=== PATIENT | female | born 1990 | race Caucasian/White ===

== ENCOUNTER 2024-10-04 01:46 | Emergency (ER) | payer MEDICARE, SELFPAY ==
--- OUTSIDE RECORDS SUMMARY | 2024-10-04 04:34 | XMS_ITS | Clinical Summary ---
Author Organization [employer] [facility] Address [address] [place] [address] Care Team Providers Care Commercial Airline Pilot Name Role Phone Mary Starr MD Primary Care Provi alicia Allergies Active Allergy Reactions Criticality Noted Date Comments Beef Containing Products *Unknown 06/06/2021 Gluten *Unknown,Headache 06/06/2021 Lactose *Unknown,Headache 06/06/2021 Nut - Unspecified *Unknown 06/06/2021 Medications apixaban (ELIQUIS) 2.5 mg tabletIndicatio ns:Klippel Trenaunay syndrome (HC),Hypercoagu lopathy (HC) Take 1 Tablet (2.5 mg) by mouth 2 times daily. 180 Tablet 3 2 Active aspirin chewable 81 mg chewable tablet Chew 324 mg by mouth once daily if needed. Active miscellaneous medical supply miscIndications :Klippel Trenaunay syndrome (HC) As directed. Patient needs tinted windows beyond legally allowed limit to help prevent heat stroke related to Klippel Trenaunay Syndrome. 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 at [facility] for this in the Klippel Trenaunay Syndrome clinic. 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 Located on the left leg Leg length discrepancy 09/18/2021 Overview (09/18/2021): Associated with Klippel Trenaunay Syndrome Hypercoagulopathy 09/18/2021 Overview (09/18/2021): Associated with Klippel Trenaunay Syndrome, on apixaban. Chronic pain disorder 09/18/2021 Overview (09/18/2021): due to vascular malformations and lymphedema related to Klippel Trenaunay Syndrome. Immunizations Immunization Administration Dates Next Due Covid-19 Vaccine (Unspecified) 08/31/2020 Td (Age >=7 Years) 02/28/2012 Tdap 12/04/2021 Social History Tobacco Use Types Packs/Day Years Used Date Smoking Tobacco: Never Smokeless Tobacco: Never Alcohol Use Standard Drinks/Week Comments Not Currently 0 (1 standard drink = 0.6 oz pur e alcohol) PHQ-2 Answer Date Recorded PHQ-2 TOTAL SCORE 0 12/04/2021 Social Connections Answer Date Recorded Frequency of Communication with Friends and Fami ly Not on file 09/18/2021 Comments No Sex and Gender Information Value Date Recorded Sex Assigned at Not on file Legal Sex Female 2:47 PM CDT Gender Identity Not on file Sexual Orientation Not on file Obstetrics History Last Filed Vital Signs Vital Sign Reading Time Taken Comments Blood Pressure 108/64 12/19/2021 1:52 PM CDT Pulse 92 12/19/2021 1:52 PM CDT Temperature 36.7 C (98.1 F) 12/19/2021 1:52 PM CDT Respiratory Rate 18 12/19/2021 1:52 PM CDT Oxygen Saturation 100% 12/19/2021 1:52 PM CDT Inhaled Oxygen Concentration - - Weight 53.1 kg (117 lb) 12/19/2021 1:52 PM CDT Height 161.8 cm (5' 3.7) 12/19/2021 1:52 PM CDT Body Mass Index 20.27 12/19/2021 1:52 PM CDT Plan of Treatment Health Maintenance Due Date Last Done Comments HIV for age 15-65 2005 Hepatitis C screening for ag e 18-79 2008 Hepatitis B series for 19+ ( 1 of 3 - 19+ 3-dose series) 2009 Pap test for age 21-65 2011 Depression screening for age 12+ 12/04/2022 12/04/2021, 12/04/2021 BMI (ht and wt on same day) for age 18+ 12/19/2022 12/19/2021, 12/04/2021, 09/18/2021 COVID-19 vaccine series (2023- season) 2023 08/31/2020 Influenza Vaccine (Season Ended) 2024 Tetanus booster 12/05/2031 12/04/2021, 02/28/2012 Tdap Completed 12/04/2021 Pneumococcal series for age 6-49 Aged Out No longer eligible b ased on patient's age to complete this topic Insurance MEDICARE [place] ONLY Care Teams Commercial Airline Pilot Relationship Specialty Start Date End Date Mary Starr MD [address] [place] [address] PCP - General Family Practice 09/18/21
--- OUTSIDE RECORDS SUMMARY | 2024-10-04 04:34 | XMS_ITS | Patient Health Record ---
Author Organization [facility] Address [address] [facility] [address] [place] [address] Care Team Providers Care Cdl Bulk Driver Name Role Phone Stacey Maradiaga Unavailable Unavailable REASON FOR REFERRAL No Information MEDICATIONS Medication SIG (Take, Route, Frequency, Duration) Notes Start Date End Date Status Xanax Active PLAN OF TREATMENT Pending Test Test Name Order Date Ultrasound : Transvaginal 08/05/2015 Insurance Providers Payer Name Payer Address Payer Phone Subscriber Number Group Number Insured Name Patient Relationship to Insured Coverage Start Date Coverage End Date Medicare Part B [address] [address] [place] [address] [phone] [id number] Edith Mathis Self - patient is the insured 6 MEDICAL (GENERAL) HISTORY Surgical History Surgery Date(Month/Year) Vein Strip Schelera therapy Splint removed from left knee
--- OUTSIDE RECORDS SUMMARY | 2024-10-04 04:35 | XMS_ITS | Patient Health Record ---
Author Organization [facility] Address [address] [place] [address] Care Team Providers Care Law Instructor Name Role Phone None, No PCP Primary Care Provider Sherrie Mohamud [phone] Allergies Allergen (clinical drug ingredient) Drug/Non Drug Allergy documented on EMR Reaction Allergy Type Onset Date Status Gluten Gluten Unknown Allergy Active Reason For Referral No Information Medications Medication SIG (Take, Route, Fr equency, Duration) Notes Start Date End Date Status Multivitamin & Mineral Active Eliquis 5 MG 1 tablet Orally Twice a day Active Social History Tobacco Use: Social History Observation Description Date Details (start date - stop date) Never Smoker NA - NA Tobacco Use/Smoking Question Answer Notes Are you a nonsmoker Alcohol Screen (Audit-C) Question Answer Notes Did you have a drink containing alcohol in the p ast year? No Points 0 Interpretation Negative Problems Problem Type SNOMED Code ICD Code Onset Dates Problem Status W/U Status Risk Notes Problem Human papilloma virus screening (391753337) Encounter for screening for human papillomavirus (HPV) (Z11.51) Active confirmed Problem Routine gynecologic examination (391890733) Encounter for routine gynecological examination with Papanicolaou smear of cervix (Z01.419) Active confirmed Plan Of Treatment No Information Insurance Providers Payer Name Payer Address Payer Phone Subscriber Number Group Number Insured Name Patient Relationship to Insured Coverage Start Date Coverage End Date Medicare (Ins. Bill) [address] [place], [place] [id number] Edith Mathis Self - patient is the insured Medical (General) History Medical History History ICD Code klippel-trenaunay syndrome vascular malf ormation; Left Lower Limb Surgical History Surgery Date(Month/Year) Vascular Surgeries
--- OUTSIDE RECORDS SUMMARY | 2024-10-04 04:35 | XMS_ITS | Clinical Summary ---
Author Organization [facility] Address [address] [place] [address] Care Team Providers Care Upkeep Worker Name Role Phone Unavailable Primary Care Provider Unavailabl e Source Comments Patient records contain information from all sites at [facility]. For routine questions regarding patient records, call [phone] during business hours, M-F 8:00 AM - 5:00 PM Central Time. Record requests for emergency care only can be directed to [phone] at any time.[facility] Allergies Active Allergy Reactions Criticality Noted Date Comments Beef Containing Products GI intolerance 022 Lactose GI intolerance,Headache 06/06/2021 Gluten GI intolerance,Headache 06/06/2021 Nut - Unspecified GI intolerance 06/06/2021 Medications * This document contains information received from the source organization and may not represent a complete record from that organization. multivit with iron,minerals (MULTIVITAMIN WITH IRON-MINERAL ORAL) Multivitamin & Mineral Active apixaban (ELIQUIS) 5 mg tablet Take 1 tablet (5 mg total) by mouth every 12 (twelve) hours. 180 tablet 3 4 Active Active Problems Problem Noted Date Diagnosed Date Malformation Vascular 06/27/2022 Discrepancy Leg Length Acquired 09/18/2021 Overview (07/03/2022): Associated with Klippel Trenaunay Syndrome Klippel Trenaunay Syndrome 02/28/2016 Overview (07/03/2022): Sees Dr. Nelson at [facility] for associated leg pain. Sees Dk PURCELL in vascular surgery. Wears 40-50 mm compression stocking daily. Has been referred to Dr. Gil in dermatology with initial appointment scheduled for 04/11/2016. Sees Christianne Schmitz M.D. at [place] for this in the [facility] [place] Trenaunay Syndrome clinic. Family History Medical History Relation Name Comments Diabetes mellitus type II Father Father Heart disease Father Father Hypertension Father Father Relation Name Status Comments Father Father Social History Tobacco Use Types Packs/Day Years Used Date Smoking Tobacco: Never Smokeless Tobacco: Never Tobacco Cessation:Counseling Given: Not Answered Alcohol Use Standard Drinks/Week Comments Never 0 (1 standard drink = 0.6 oz pur e alcohol) Humiliation, Afraid, Rape, and Kick questionnair e Answer Date Recorded Within the last year, have y ou been afraid of your partner or ex-partner? No 06/27/2022 Within the last year, have y ou been humiliated or emotionally abused in other ways by your partner or ex-partner? No Within the last year, have y ou been kicked, hit, slapped, or otherwise physically hurt by your partner or ex-partner? No 06/27/2022 Within the last year, have y ou been raped or forced to have any kind of sexual activity by your partner or ex-partner? No 06/27/2022 Social Connection and Isolat ion Panel [NHANES] Answer Date Recorded In a typical week, how many times do you talk on the phone with family, friends, or neighbors? More than three times a week 06/27/2022 How often do you get togethe r with friends or relatives? Once a week 06/27/2022 How often do you attend chur ch or judaism services? Never 06/27/2022 Do you belong to any clubs o r organizations such as yazdanism groups, unions, fraternal or athletic groups, or school groups? No 06/27/2022 How often do you attend meet ings of the clubs or organizations you belong to? Never 06/27/2022 Are you , , di vorced, , never , or living with a partner? Never 06/27/2022 AUDIT-C Answer Date Recorded Q1: How often do you have a drink containing alc ohol? Never 06/27/2022 Average Number of Drinks Not on file 023 Frequency of Binge Drinking Not on file 04/2022 Overall Financial Resource Strain (CARDIA) Answe r Date Recorded How hard is it for you to pa y for the very basics like food, housing, medical care, and heating? Patient declined 06/27/2022 [facility] - Occupational Stress Questionnaire Answer Date Recorded Do you feel stress - tense, restless, nervous, or anxious, or unable to sleep at night because your mind is troubled all the time - these days? Not at all 06/27/2022 Exercise Vital Sign Answer Date Recorde d On average, how many days pe r week do you engage in moderate to strenuous exercise (like a brisk walk)? 0 days 06/27/2022 On average, how many minutes do you engage in exercise at this level? 0 min 06/27/2022 Hunger Vital Sign Answer Date Recorded Within the past 12 months, y ou worried that your food would run out before you got the money to buy more. Patient declined Within the past 12 months, t he food you bought just didn't last and you didn't have money to get more. Patient declined 04/2022 PRAPARE - Transportation Answer Date Re corded In the past 12 months, has l ack of transportation kept you from medical appointments or from getting medications? No 04/2022 In the past 12 months, has l ack of transportation kept you from meetings, work, or from getting things needed for daily living? No 06/27/2022 Housing Stability Vital Sign Answer Judd e Recorded In the last 12 months, was t here a time when you were not able to pay the mortgage or rent on time? Patient refused 06/28/19 23 In the last 12 months, how many places have you lived? 2 06/27/2022 In the last 12 months, was t here a time when you did not have a steady place to sleep or slept in a fpc (including now)? No 06/27/2022 Nutrition Answer Date Recorded On average, how many serving s of fruits and vegetables do you eat per day (serving size is equal to 1 cup or approximately the size of a tennis ball)? 0-1 06/27/2022 Dental Answer Date Recorded Dental: Regular Dentist Yes 06/28/19 Employment Answer Date Recorded Employment status Permanently disabled Education Answer Date Recorded What is the highest level of school you have completed or the highest degree you have received? Bachelor's degree (e.g., BA, AB, BS) 06/27/2022 Comments Unknown Sex and Gender Information Value Date Recorded Sex Assigned at Female 06/27/2022 10:35 AM SIGHTSEEING GUIDE Legal Sex Female 6:46 PM SIGHTSEEING GUIDE Gender Identity Female 06/27/2022 10:37 AM SIGHTSEEING GUIDE Sexual Orientation Straight 06/27/2022 10 :37 AM SIGHTSEEING GUIDE Last Filed Vital Signs Vital Sign Reading Time Taken Comments Blood Pressure 105/68 06/03/2023 3:41 PM SIGHTSEEING GUIDE Pulse 91 06/03/2023 3:41 PM SIGHTSEEING GUIDE Temperature - - Respiratory Rate - - Oxygen Saturation - - Inhaled Oxygen Concentration - - Weight 52.5 kg (115 lb 11.9 oz) 06/03/2023 3:39 PM SIGHTSEEING GUIDE Height 160.8 cm (5' 3.31) 06/03/2023 3:39 PM CS T Body Mass Index 20.3 06/03/2023 3:39 PM SIGHTSEEING GUIDE Plan of Treatment Health Maintenance Due Date Last Done Comments HIV Screening 1990 Hepatitis C Screening 1990 Cervical/Vaginal Cancer Screening 02/27/2019 02/28/2016 COVID-19 Vaccine ( season) 2023 02/16/2023, 02/13/2022 Influenza Vaccine (#1) 2024 Depression Screening (Annual PHQ-2) 04/29/2024 DTaP,Tdap,and Td Vaccines (8 - Td or Tdap) 12/05/2031 12/04/2021, 09/12/2001, 10/27/1996, Additional history exists Hepatitis B Vaccines Completed 07/02/1994, 11/14/1993, 10/12/1993 IPV Vaccines Completed 11/18/1995, 11/1991, 1990, Additional history exists HPV Vaccines Aged Out No longer eligi ble based on patient's age to complete this topic Pneumococcal vaccine (0-49 years) Aged Out No longer eligible based on patient's age to complete this topic Insurance MEDICARE
--- OUTSIDE RECORDS SUMMARY | 2024-10-04 04:35 | XMS_ITS | Data Portability ---
Author Organization [facility] Address [address] [place] [id number] Assessment Encounter Date Assessment Date Assessment LastModified by Organization Details LastModified Time 09/04/2023 09/04/2023 Time spent reviewing the patient s medical record, diagnostic studies, performing a focused history and physical exam, educating the patient regarding the natural history of disease as it pertains to the patient, discussing treatment options and alternatives, medical decision making, and chartin-59 minutes. Not available 09/04/2023 13:41:25 Plan of Treatment Reminders Order Date Submit Date Provider Last Modified By Organization Details Last Modified Time Details Appointments None record ed. Lab None record ed. Referral None record ed. Procedures None record ed. Surgeries None record ed. Imaging None record ed. Medication Orders None record ed. Patient TargetsNo targets recorded. Patient Instructions Encounter Date Encounter Id Patient Instructions Last Modified By Organization Details Last Modified Time 09/04/2023 [id number] PROCEDURE RECOMMENDATIONS 1. Ultrasound guided foam sclerotherapy of the residual incompetent tributaries and varicosities greater than 4.0mm of the left leg (21021, [address]43) - 3 sessions Not available 09/04/2023 13:42:33 Reason for Referral None Reported. Problems Name Problem SNOMED Code Status Onset Date Resolution Date Notes Provider Name and Address Organization Details Recorded Time Klippel Trenaunay syndrome 613773412 Active 024 Karri Nichols PA-C [address], [place], [address], [place] [facility] 13:31:55 Problem Notes None recorded. Procedures Surgical History Date Name Laterality Status Provider Name and Address Organization Details Recorded Time procedure on vein completed Karri Nichols PA-C [address] [place], [address], [place] [facility] 09/04/2023 13:32:32 Imaging Results None recorded. Procedure Notes None recorded. Medical Equipment None Reported. Allergies No known drug allergies Medications Name Sig Start Date Stop Date Status Note LastModified by Organization Details LastModified Time Eliquis 5 mg tablet active Not Available Not Available No t Available Vitals Date Recorded Body height Body mass index (BMI) Body weight Provider Name and Address Organization Details Last Updated DateTime 09/04/2023 157.48 cm 21 kg/m2 73888.12 g Karri Nichols PA-C [address], [place], [address], [place] [facility] 09/04/2023 13:31:42 Social History None recorded. Functional Status Question Answer Note LastModified by Organization D etails LastModified Time What is your level of alcohol consumption? None Information not available 09/04/2023 Are you currently employed? No Information not available 09/04/2023 Mental Status None recorded. Family History Nothing Reported. Medical History No medical history recorded. Gynecological HistoryNo gynecological history recorded. Obstetrics History GPAL:G 0 P 0 0 0 0 Past Encounters Encounter ID Performer Location Encounter Start Date Encounter Closed Date Diagnosis/Indication Diagnosis SNOMED-CT Code Diagnosis ICD10 Code Diagnosis Note [id number] Karri Nichols PA-C [facility] [address] [address] [place] [address] 09/04/2023 11:55:31 09/09/2023 11:32:16 Pain co-occurrent and due to varicose veins of left leg [id number] I83.812 DUPLEX ULTRASOUND FINDINGS: Spectral doppler analysis shows abnormal reflux (>500msec) in the multiple left tributary veins. The left GSV and SSV are absent c/w prior treatment. The deep veins are patent with normal compressib ility and augmentati on. Left deep venous insufficie ncy is absent. There is adequate venous capacity of the deep system. [id number] IN[facility] [address] [place] [address] 09/04/2023 11:55:31 09/09/2023 11:32:16 Pain co-occurrent and due to varicose veins of left leg [id number] I83.812 DUPLEX ULTRASOUND FINDINGS: Spectral doppler analysis shows abnormal reflux (>500msec) in the multiple left tributary veins. The left GSV and SSV are absent c/w prior treatment. The deep veins are patent with normal compressib ility and augmentati on. Left deep venous insufficie ncy is absent. There is adequate venous capacity of the deep system. 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 CEAP 3 VCSS 112) Normal deep venous system without DVT3) The patient has progressio n of symptoms despite conservati ve measures including: use of GCS class II or higher for more than 12 weeks, avoiding long periods of sitting/st anding, regular daily exercise including moderate walking, weight control, OTC analgesics and leg elevation. PLAN:1) Proceed with the treatment plan detailed below. Patient does note that with prior sclero treatments she has had a lot of knee pain, so prefers to focus on lower leg/ankle first and inject surroundin g knee as she is comfortabl e. Klippel Tr enaunay syndrome [id number] Q87.2 Lymphedema 104934614 I89 .0 Patient is interested in lymphedema therapy referral for MLD and wrapping. She has had it in the past with good results. Gave patient list of preferred therapists and she will contact us to send referral in when she looks over list. Health Concerns Section Related Observation LastModified by Organization Detai ls LastModified Time None Recorded Concern Status LastModified by Organization Details LastModified Time None Recorded Advance Directives Directive None Recorded Payers Encounter Date Sequence Insurance Name Policy Number Policy Montano Covered Member ID Montano Member ID Guarantor Name 09/04/2023 1 [place] [employer] Edith Mathis [id number] Edith Mathis 09/04/2023 1 [place] [employer] Edith Mathis [id number] Edith Mathis Notes Date Note Type Note Provider Name and Address Organization Details Recorded Time 09/04/2023 text/html The patient is a 33 yo female who presents with Klippel Trenaunay Syndrome and complications of left lower extremity varicose veins. This has been present since and patient has had vein treatments since she was 15 years old. Patient now regularly gets medical sclerotherapy treatments for maintenance of symptoms, although has not had treatment for 8 years. Patient is followed with vascular surgery and uses Eliquis daily as prophylaxis for DVT and for symptom control. Patient uses 40-50mmHg compression daily. Symptoms include: pain, aching, heavy legs, fatigue, itching, recurring swelling, spider veins, surface veins. Patient also has a port wine stain surrounding knee, this area does get hot and painful. There is no history of DVT, ulceration, cellulitis or phleborrhagia. History of SVT in the past, since Eliquis use has not had any episodes. Symptom location: Left leg including foot/ankle, surround knee, and up to thigh Symptom severity: 10/10; severe Symptoms occur with: prolonged sitting and standing, sleeping, during activity/exercise, after activity/exercise, and are worse later in the day. ADLs affected by symptoms:-Sleep: interfere with patient s ability to fall asleep and cause patient to awaken from sleep frequently.-Exercis e/activity: limit ability to exercise, including walking.-Work: Needs to take frequent breaks to walk and/or elevate legs.-Chores: Avoids chores or needs to take breaks to walk and/or elevate legs.-Leisure activities: Avoids activities or needs to take breaks to walk and/or elevate. Conservative measures implemented without relief of symptoms:-avoidance of prolonged periods of sitting or standing,-regular exercise including moderate daily walking,-leg elevation,-weight control,-GCS 40-50 mmHg >3 months, wears daily, has had Rx since she was 15 y/o,-OTC analgesics. Mireille Samriento MD [address], [place], [address], [place] [facility] 09/04/2023 14:52:58 OBGyn Episode No OBEpisode recorded.
[2024-10-04 04:37] VITALS: BP 135/62; PULSE 115; RESP 18; TEMP 36.9; O2SAT 98; BMI 20.7
--- OUTSIDE RECORDS SUMMARY | 2024-10-04 04:37 | XMS_ITS | Data Portability ---
Author Organization [facility] - Jewel Hess MD, Main Office Address [address] [address] Assessment No assessment recorded. Plan of Treatment Reminders Order Date Submit Date Provider Last Modified By Organization Details Last Modified Time Details Appointments None recorded. Lab urinalysis complete, reflex culture 2020 021 [place] [facility] ([facility], [address] [place] [address], [place], [address], 2 05:01:03 urinalysis, dipstick 2020 021 [place] Main Office, [address] [facility] [address], [place], [address], 1 16:30:49 Referral None recorded. Procedures None recorded. Surgeries None recorded. Imaging None recorded. Medication Orders None recorded. Patient TargetsNo targets recorded. Patient InstructionsNo instructions recorded. Reason for Referral None Reported. Results Created Date Observation Date Name Description Value Unit Range Abnormal Flag Note LastModifiedBy Organization Detail LastModifiedTime 01/26/20 21 01/26/2021 NTI URINE TUBE (MARCELINO ) nti urine tube (marcelino) Commen t: A urine cultu re trans port was recei randy with no test indic ated. If testi ng is requi red on this speci men, pleas e conta ct the [facility] Clien t Inqui ry/Te chnic al Servi marce Depar tment to obtai n a Reque st for Writt en Autho rizat ion Form. Not Available [facility] ([facility]) [address] [facility], [place], [address], 01/26/2021 13:37:30 01/26/20 21 01/31/2021 URINE CULTU RE,CO MPREH ENSIV E urine culture,comp rehensive Final report Not Available [facility] ([facility]) [address] [facility], [place], [address], 01/31/2021 16:37:51 01/26/20 21 01/31/2021 URINE CULTU RE,CO MPREH ENSIV E result 1 Lactob acillu s specie s 25,00 0-50, 000 colon y formi ng units per mL Susce ptibi lity not ashley lly perfo rmed on this organ ism. Not Available [facility] ([facility]) [address] [facility], [place], [address], 01/31/2021 16:37:51 01/26/20 21 01/31/2021 RHIANNA EN AUTHO RIZAT ION written authorizatio n Lloyd Gagnon en Autho rizat ion Recei randy. Autho rizat ion recei randy from Jewelregina mcdaniel 01-31 Logge d by Georgina hardy Not Available [facility] ([facility]) [address] [facility], [place], [address], 01/31/2021 16:37:52 01/26/20 21 01/25/2021 urina lysis , dipst ick Nitrite negati ve Not Available Main Office [address], [place], [address], 01/25/2021 12:47:34 01/26/20 21 01/25/2021 urina lysis , dipst ick Protein Negati ve Not Available Main Office [address], [place], [address], 01/25/2021 12:47:34 01/26/20 21 01/25/2021 urina lysis , dipst ick Urobilinogen .2 Not Available Main Office [address], [place], [address], 01/25/2021 12:47:34 01/26/20 21 01/25/2021 urina lysis , dipst ick pH 6.0 Not Available Main Offic e [address], [place], [address], 01/25/2021 12:47:34 01/26/20 21 01/25/2021 urina lysis , dipst ick Blood Negati ve Not Available Main Office [address], [place], [address], 01/25/2021 12:47:34 01/26/20 21 01/25/2021 urina lysis , dipst ick Specific [place] 1.015 Not Available Main O ffice [address], [place], [address], 01/25/2021 12:47:34 01/26/20 21 01/25/2021 urina lysis , dipst ick Ketone Negati ve Not Available Main Office [address], [place], [address], 01/25/2021 12:47:34 01/26/20 21 01/25/2021 urina lysis , dipst ick Bilirubin Negati ve Not Available Main Office [address], [place], [address], 01/25/2021 12:47:34 01/26/20 21 01/25/2021 urina lysis , dipst ick Glucose Negati ve Not Available Main Office [address], [place], [address], 01/25/2021 12:47:34 01/26/20 21 01/25/2021 urina lysis , dipst ick Leukocytes Small Not Available Main Of fice [address] [facility] [address], [place], [address], 01/25/2021 12:47:34 01/26/2001/25/2021 urina lysis , dipst ick Appearance Slight ly Cloudy Not Available Main Office [address] [facility] [address], [place], [address], 01/25/2021 12:47:34 01/26/2001/25/2021 urina lysis , dipst ick Color Pale Yellow Not Available Main Office [address] [facility], [place], [address], 01/25/2021 12:47:34 Result Notes None recorded. 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 Medical Equipment None Reported. Allergies No known drug allergies Medications Name Sig Start Date Stop Date Status Note LastModified by Organization Details LastModified Time Eliquis 5 mg tablet TAKE 1 TABLET BY MOUTH EVERY DAY active Not Available Not Available No t Available Eliquis 2.5 mg tablet TAKE 1 TABLET (2.5 MG TOTAL) BY MOUTH EVERY 12 (TWELVE) HOURS active Not Available Not Available No t Available Vitals Date Recorded Body height Body temperature Heart rate Oxygen saturation Oxygen saturation in Arterial blood by Pulse oximetry Systolic blood pressure Diastolic blood pressure Provider Name and Address Organization Details Last Updated DateTime 157.48 cm 98.1 [degF] 90 /min 99 % 99 % 128 mm[Hg] 66 mm[Hg] Jewel Hess MD [address], [place], [address], [place] Danis Hess MD 12:44:05 Social History Question Answer Notes LastModified by Organizat ion Details LastModified Time Tobacco Smoking Status Never Smoker Jewel Hess MD [address] [facility], [place], [address], [facility] Jewel Hess MD 01/25/2021 12:31:55 Are You Blind Or Do You Have Difficulty Seeing? No [email or web address] Information n ot available 02/06/2021 In The 14 Days Before Symptom Onset, Have You Had Close Contact With A Laboratory-confirm ed COVID-19 While That Case Was Ill? No Information n ot available 02/06/2021 In The 14 Days Before Symptom Onset, Have You Had Close Contact With A Person Who Is Under Investigation For COVID-19 While That Person Was Ill? No [email or web address] Information not available 02/06/2021 Have You Been To An Area Known To Be High Risk For COVID-19? No [email or web address] Information not available 02/06/2021 Are You Deaf Or Do You Have Serious Difficulty Hearing? No [email or web address] Information not available 02/06/2021 Have You Processed Blood Or Body Fluids From An Ebola Virus Disease Patient Without Appropriate PPE? No [email or web address] Information not available 02/06/2021 Do You Reside In Or Have You Traveled To An Area Where Ebola Virus Transmission Is Active? No Information not available 02/06/2021 Have You Recently Or Are You Planning To Travel To An Area With Zika Virus? No [email or web address] Information not available 02/06/2021 Do You Have Difficulty Walking Or Climbing Stairs? Yes [email or web address] Information not available 02/06/2021 Sex: Unknown Functional Status Question Answer Note LastModified by Organizat ion Details LastModified Time Do you use any illicit or recreational drugs? No Information not available 01/25/2021 What is your level of alcohol consumption? None [email or web address] Information not available 01/25/2021 Are you currently employed? No [email or web address] Information not available 01/25/2021 Do you have transportation difficulties? No [email or web address] Information not available 02/06/2021 Are you able to walk? YESWOREST [email or web address] Information not available 02/06/2021 Do you have difficulty doing errands alone? No [email or web address] Information not available 02/06/2021 Are you able to care for yourself? Yes [email or web address] Information not available 02/06/2021 Do you have difficulty dressing or bathing? No [email or web address] Information not available 02/06/2021 Mental Status Question Answer Note LastModified by Organization D etails LastModified Time Do you have difficulty concentrating, remembering or making decisions? [place] [email or web address] Information no t available 02/06/2021 Family History Relationship Description Onset Age of this Age Resolved Age Notes LastModified by Organization Details LastModified Time Father Diabetes mellitus [email or web address] Not available 01/25 12:30:45 Father Heart disease [email or web address] Not available 01/25 12:30:55 Medical History No medical history recorded. Gynecological HistoryNo gynecological history recorded. Obstetrics History GPAL:G 0 P 0 0 0 0 Immunizations Vaccine Type Date Status Note Provider Nam e and Address Organization Details Recorded Time SARS-COV-2 (COVID-19) vaccine, UNSPECIFIED 08/31/2020 completed Jewel Hess MD [address] [facility],[address], [place], [address], [facility] [place] Jewel Hess MD 01/25/2021 12:32:23 Past Encounters Encounter ID Performer Location Encounter Start Date Encounter Closed Date Diagnosis/Indication Diagnosis SNOMED-CT Code Diagnosis ICD10 Code Diagnosis Note [id number] Jewel Hess MD Main Office [address] [facility] [address] [place] [address] 01/25/2021 12:09:18 01/25/2021 12:56:22 Acute urinary tract infection 499358874 N39.0 will check urine or infection. Doesn't want to get empiricall y treated with ABx at this times. Klippel Tr enaunay syndrome 786834905 Q87.2 She was diagnosed with this few years ago.Naomi carranza on Eliquis QD.Follows up with a specialist .Spent about 40 minutes discussing her diagnosis/ management . Adult heal th examination 430441274 Z00.01 She recently had blood work done at a different lab.Advise d her to have them faxed over to our office.It was allegedly WNL. Health Concerns Section Related Observation LastModified by Organization Detai ls LastModified Time None Recorded Concern Status LastModified by Organization Details LastModified Time None Recorded Advance Directives Directive None Recorded Payers Encounter Date Sequence Insurance Name Policy Number Policy [place] Covered Member ID [place] Member ID Guarantor Name 01/25/2021 1 [place] Edith Mathis [id number] Edith Mathis Notes Date Note Type Note Provider Name and Address Organization Details Recorded Time 01/25/2021 text/html Edith is a 30 y o CF here to establish care with us.She was diagnosed with Klippel Trenaunay syndrome(KTS) few years ago. Is on eliquis 5 mg qdLast physical 2 years ago. Labs [facility] done [facility].Does have chronic L leg pain and swelling.Has increase frequency of urination. Intermittent burning. No pelvic pain though.Father had DM/heart disease.Vitals are WNL in the office.He L leg swells up quickly if she sits or stands. Swelling decreases on leg elevation. She has chronic lymphedema.She has Port-wine stains on her LLL. Jewel Hess MD [address] [facility], [address], [facility] [place] Jewel Hess MD 02/06/2021 15:14:24 OBGyn Episode No OBEpisode recorded.
[2024-10-04 05:37] LABS: Color Urine Yellow (Yellow)
[2024-10-04 05:38] LABS: Appearance Urine Slightly Cloudy (Clear); Bacteria Urine Few; Bilirubin Urine Negative (Negative); Blood Urine 3+ (Negative); Glucose Urine Negative (Negative); Ketones Urine Negative (Negative); Leukocyte Esterase Urine Trace (Negative); Nitrite Urine Negative (Negative); Protein Urine Negative (Negative); RBC Urine 50-100 (0-2); Squamous Epithelial Cell Urine Few (None-Few); Urobilinogen Urine 0.2 (0.2-1.0); WBC Urine 0-2 (0-5)
[2024-10-04 05:39] LABS: Ur HCG Qualitative* Negative (Negative)
--- NOTE | 2024-10-04 06:22 | ED_ITS ---
HPI - General Adult General Chief complaint: Urogenital Problems, Female Stated complaint: Vaginal bleeding History of Present Illness HPI narrative: EMR down time note on Edith Mathis 34-year-old female presents to the emergency department for evaluation of which she describes as a ?object protruding from her vagina?.? She noticed this about an hour ago.? She takes Eliquis because of an AV malformation.? She has been having ?midcycle bleeding? for quite sometime and has an appointment scheduled with the survey crew chief in 2 weeks.? She she does not take any type of contraception but reports that she has not been sexually active for more than 2 years.? Her menstrual spotting started yesterday.? Is not prone to clots or decidual type material.? Has no history of uterine or cervical cancer.? No STD type symptoms.? No fever or abdominal pain.? Did not try any home treatments prior to coming to the ED.? Reports her past medical history is notable for an AV malformation.? Home medication is Eliquis.? Allergies to epinephrine.? ROS is notable for a gynecological symptoms, otherwise denies times 12 systems. On exam weight 113, temp 98.5?, pulse 115, O2 sats 98% on room air respiratory rate 18 blood pressure 135/62.? Generally she is awake and alert, anxious but redirectable.? Good historian.? Head appears atraumatic eyes with normal conjugate gaze and normal appearing pupils.? Oropharynx with acyanotic lips moist membranes neck appears visually normal.? Breathing is unlabored, speaking in full sentences.? Abdomen is soft and nongravid.? Nontender.? General exam shows normal appearing external genitalia.? Normal urethra, labia, mild red vaginal bleeding but no signs of foreign body or mass externally.? Speculum exam is gently inserted.? Here I can see a dime-sized typical clot mixed with red blood, about a 2 cm string attached to a pea-sized similar clot as well.? These are gently removed from the vaginal vault with a Q-tip and then a ring forcep.? I do examine them, gently probed through the material.? Do not see any evidence of placental tissue, tissue or obvious dysmorphia.? Speculum exam is then used to re-examine the cervix which appears nulliparous with no further abnormal material, mild bright red vaginal bleeding, no severe bleeding.? Lower extremities are covered with compression stockings.? The remaining skin exposed shows no obvious signs of rash or trauma.? Mood behavior and affect are anxious but reasonably appropriate. ED course: HCG and urinalysis collected.? Expecting these to be negative.? Counseled patient that this appears to be a simple clot with decidual lining.? Offered to send for pathology but this would not negate the need for a pelvic ultrasound and likely an endometrial biopsy to further workup her midcycle bleeding.? Counseled patient that I do not have ultrasound available overnight for non emergent cases.? She does have a gynecology visit scheduled in 2 weeks and I have encouraged her to keep that appointment.? Would recommend ultrasound and then determining further workup based on these results.? Counseled patient that unfortunately she may have more of these but we reviewed signs of reasonably safe clots and what to do about larger clots, corner to golf ball- sized, persistent heavy bleeding all of which would warrant ED presentation.? She will continue on her Eliquis.? Written instructions provided, all questions answered.? Patient will be discharged home to keep her gynecology follow-up as planned.? Update: Urinalysis does show blood which of course make sense with her on her menstrual cycle but the test is negative. Assessment dysfunctional uterine bleeding, decidual clot, needs further workup.? Plan as stated above. Related Data Allergies Allergy/AdvReac Type Severity Reaction Status Date / Time epinephrine AdvReac Mild Palpitation Verified 10/04/24 04:52 s Exam Const: Vital Signs, click to edit/add: Vital Signs - 24 hr 10/04/24 04:37 Temperature 98.5 F Pulse Rate [Right] 115 H Respiratory Rate 18 Blood Pressure [Ri ght Upper Arm] 135/62 Pulse Oximetry 98 Oxygen Delivery Me thod Room Air Course Vital Signs Vital signs: Initial Vital Signs Temperature 98.5 F 10/04/24 04:37 Temperature Source Temporal Artery Scan 10/04/24 04:37 Pulse Rate 115 H 10/04/24 04:37 Pulse Rhythm Regular 10/04/24 04:37 Pulse Strength 3+ Normal 10/04/24 04:37 Respiratory Rate 18 10/04/24 04:37 Blood Pressure 135/62 10/04/24 04:37 Blood Pressure Mean 86 10/04/24 04:37 Blood Pressure Position Sitting 10/04/24 04:37 Pulse Oximetry 98 10/04/24 04:37 Oxygen Delivery Method Room Air 10/04/24 04:37 Vital Signs Temperature 98.5 F 10/04/24 04:37 Pulse Rate 115 H 10/04/24 04:37 Respiratory Rate 18 10/04/24 04:37 Blood Pressure 135/62 10/04/24 04:37 Pulse Oximetry 98 10/04/24 04:37 Oxygen Delivery Method Room Air 10/04/24 04:37 Temperature 98.5 F 10/04/24 04:37 Pulse Rate 115 H 10/04/24 04:37 Respiratory Rate 18 10/04/24 04:37 Blood Pressure 135/62 10/04/24 04:37 Pulse Oximetry 98 10/04/24 04:37 Oxygen Delivery Method Room Air 10/04/24 04:37 Medical Decision Making Lab Data Lab results reviewed: Yes I reviewed the patient's lab results Lab results narrative: Blood expected, on menses. Negative test Labs: Lab Results 10/04/24 Range/Units 02:12 Urine Color Yellow (Yellow) Urine Appearance Slightly Cloudy A (Clear) Urine pH 7.0 (5.0-8.5) Ur Specific [place] 1.010 (1.000-1.030) Urine Protein Negative (Negative) Urine Glucose (UA) Negative (Negative) Urine Ketones Negative (Negative) Urine Blood 3+ A (Negative) Urine Nitrite Negative (Negative) Urine Bilirubin Negative (Negative) Urine Urobilinogen 0.2 (0.2-1.0) Ur Leukocyte Esterase Trace A (Negative) Urine RBC 50-100 A (0-2) Urine WBC 0-2 (0-5) Ur Squamous Epith Cells Few (None-Few) Urine Bacteria Few A (None) Urine HCG, Qual Negative (Negative) Discharge Plan Discharge Clinical Impression: Bleeding, uterine, dysfunctional Patient Disposition: Home w/ Parent or Adult Condition: Stable Instructions: Abnormal (Dysfunctional) Uterine Bleeding (ED) Additional Instructions: Patient instructions on Edith Mathis I apologize for the less professional looking discharge instructions, as discussed, we are on computer downtime tonight, we do this once monthly for required patches and updates. The material removed today is consistent with blood clot and decidual lining.? This is not the cause of your midcycle spotting and that does need further workup.? We do not have ultrasound in the middle of the night, therefore I will have you discuss this at your upcoming gynecology visit.? They will likely recommend a pelvic ultrasound and may also recommend an endometrial biopsy based on the ultrasound.? It is okay to try to gently sweep and remove similar appearing material in the future.? You need to come to emergency room if you have severe lightheadedness, high fever or are soaking through heavy pads and tampons very quickly.? Dime-sized clots like the 1 you had today that are long and stringy as well are likely to happen again unfortunately.? Some of this has to do with the blood thinners that you take.? From an Emergency Room perspective, there is no further workup needed since you are not showing any signs of dangerous bleeding but the survey crew chief will have further instructions for you.? It is important that you keep this planned follow-up visit. Activity Level: No Restrictions Follow Up/Referrals: Provider,Not a Local [Primary Care Provider, Family Practice]
== END 2024-10-04 05:43 | disposition home or self-care (01) ==
PROVIDERS: Emergency Provider Family Medicine
DX: N93.9 Abnormal uterine and vaginal bleeding, unspecified (principal)
CPT/HCPCS: 81001; 81025; 87086; 99283